=== PATIENT | male | born 1975 | race Caucasian/White ===

== ENCOUNTER 2017-10-25 09:02 | Emergency (ER) | payer BC ==
--- NOTE | 2017-10-25 09:18 | EDM.PDOC ---
ED HPI GENERAL MEDICAL PROBLEM - General Chief Complaint: Back Pain or Injury Stated Complaint: BACK PAIN Time Seen by Provider: 10/25/17 10:07 Source of Information: Reports: Patient History Limitations: Reports: No Limitations - History of Present Illness INITIAL COMMENTS - FREE TEXT/NARRATIVE: History of present illness: []Patient presents with left lower back pain after crawling in his truck and feeling a sharp sudden pain. He denies any radiating pain to his lower extremities or numbness or tingling. Patient has had a fractured back many years ago and states that this does not feel anything like that. Review of systems: As per history of present illness and below otherwise all systems reviewed and negative. Past medical history: As per history of present illness and as reviewed below otherwise noncontributory. Surgical history: As per history of present illness and as reviewed below otherwise noncontributory. Social history: No reported history of drug or alcohol abuse. Family history: As per history of present illness and as reviewed below otherwise noncontributory. Physical exam: General: Well developed, well nourished in NAD HEENT: Atraumatic, normocephalic, pupils reactive, negative for conjunctival pallor or scleral icterus, mucous membranes moist, throat clear, neck supple, nontender, trachea midline. Lungs: Clear to auscultation, breath sounds equal bilaterally, chest nontender. Heart: S1S2, regular, negative for clicks, rubs, or JVD. Abdomen: Soft, nondistended, nontender. Negative for masses or hepatosplenomegaly. Negative for costovertebral tenderness. Pelvis: Stable nontender. Genitourinary: Deferred. Rectal: Deferred. Extremities: Atraumatic, negative for cords or calf pain. Neurovascular unremarkable. Neuro: Awake, alert, oriented. Cranial nerves II through XII unremarkable. Cerebellum unremarkable. Motor and sensory unremarkable throughout. Exam nonfocal. Diagnostics: [] Therapeutics: []Flexeril and Toradol given in the ED Impression: []Lumbar strain Plan: []Flexeril and tramadol for pain follow-up PMD requests physical therapy. Definitive disposition and diagnosis as appropriate pending reevaluation and review of above. Lower Back Pain Score (Numeric/FACES): 10 - Related Data Allergies Allergy/AdvReac Type Severity Reaction Status Date / Time No Known Allergies Allergy Verified 06/23/16 10:12 Home Meds: Home Meds Cyclobenzaprine [Flexeril] 10 mg PO BID PRN #16 tablet 10/25/17 [Rx] traMADol [Ultram] 50 mg PO Q8H PRN #16 tablet 10/25/17 [Rx] Past Medical History - Past Health History Medical/Surgical History: Denies Medical/Surgical History HEENT History: Reports: Other (See Below) Other HEENT History: Wears eyeglasses. Cardiovascular History: Reports: None Respiratory History: Reports: None Gastrointestinal History: Reports: None Genitourinary History: Reports: Other (See Below) Other Genitourinary History: kidney stones Musculoskeletal History: Reports: None Neurological History: Reports: None Psychiatric History: Reports: None Endocrine/Metabolic History: Reports: None Hematologic History: Reports: None Immunologic History: Reports: None Oncologic (Cancer) History: Reports: None Dermatologic History: Reports: None - Infectious Disease History Infectious Disease History: Reports: Chicken Pox - Past Surgical History Head Surgeries/Procedures: Reports: None HEENT Surgical History: Reports: None Cardiovascular Surgical History: Reports: None Respiratory Surgical History: Reports: None GI Surgical History: Reports: None Male Surgical History: Reports: None Endocrine Surgical History: Reports: None Neurological Surgical History: Reports: None Musculoskeletal Surgical History: Reports: None Oncologic Surgical History: Reports: None Social & Family History - Family History Family Medical History: Noncontributory HEENT: Reports: None Cardiac: Reports: Hypertension Respiratory: Reports: None GI: Reports: None : Reports: None OBGYN: Reports: None Musculoskeletal: Reports: None Endocrine/Metabolic: Reports: Diabetes, type II Hematologic: Reports: None Immunologic: Reports: None Dermatologic: Reports: None Oncologic: Reports: Other (See Below) Other Oncologic Family History: Myeloma - Tobacco Use Smoking Status *Q: Current Every Day Smoker Years of Tobacco use: 20 Packs/Tins Daily: 0.5 Used Tobacco, but Quit: No Second Hand Smoke Exposure: Yes - Recreational Drug Use Recreational Drug Use: No ED ROS GENERAL - Review of Systems Review Of Systems: See Below (See history of present illness) ED EXAM, GENERAL - Physical Exam Exam: See Below (See history of present illness) Course - Vital Signs Last Recorded V/S: Last Vital Signs Temp 96.0 F 10/25/17 09:11 Pulse 84 10/25/17 09:11 Resp 22 H 10/25/17 09:11 BP 132/99 H 10/25/17 09:11 Pulse Ox 97 10/25/17 09:11 - Orders/Labs/Meds Meds: Medications Discontinued Medications Generic Name Dose Route Start Last Admin Trade Name Freq PRN Reason Stop Dose Admin Cyclobenzaprine HCl 10 mg 10/25/17 09:39 10/25/17 09:46 Flexeril PO 10/25/17 09:40 10 mg ONETIME ONE Administration Ketorolac Tromethamine 60 mg 10/25/17 09:39 10/25/17 09:45 Toradol IM 10/25/17 09:40 60 mg ONETIME ONE Administration Departure - Departure Time of Disposition: 10:02 Disposition: Home, Self-Care 01 Condition: Good Clinical Impression: Lumbar paraspinal muscle spasm - Discharge Information Prescriptions: Cyclobenzaprine [Flexeril] 10 mg PO BID PRN #16 tablet PRN Reason: Spasms traMADol [Ultram] 50 mg PO Q8H PRN #16 tablet PRN Reason: Pain Referrals: PCP,None [Primary Care Provider] - Forms: ED Department Discharge Additional Instructions: The following information is given to patients seen in the emergency department who are being discharged to home. This information is to outline your options for follow-up care. We provide all patients seen in our emergency department with a follow-up referral. The need for follow-up, as well as the timing and circumstances, are variable depending upon the specifics of your emergency department visit. If you don't have a primary care physician on staff, we will provide you with a referral. We always advise you to contact your personal physician following an emergency department visit to inform them of the circumstance of the visit and for follow-up with them and/or the need for any referrals to a consulting specialist. The emergency department will also refer you to a specialist when appropriate. This referral assures that you have the opportunity for follow-up care with a specialist. All of these measure are taken in an effort to provide you with optimal care, which includes your follow-up. Under all circumstances we always encourage you to contact your private physician who remains a resource for coordinating your care. When calling for follow-up care, please make the office aware that this follow-up is from your recent emergency room visit. If for any reason you are refused follow-up, please contact the [facility] Emergency Department at and asked to speak to the emergency department charge nurse. Flexeril and tramadol as directed follow-up with primary care request physical therapy return if symptoms worsen or change. [facility] [place] [id number] .
[2017-10-25] MEDS ORDERED: Ketorolac 60 MG/2 ML SDV IM ONE (09:39)
[2017-10-25] MEDS ORDERED: Cyclobenzaprine 10 MG Tab PO ONE (09:39)
[2017-10-25 10:28] VITALS: BP 127/96
== END 2017-10-25 10:14 | disposition home or self-care (01) ==
LOC: MW.ED 09:02
DX: S39.012A Strain of muscle, fascia and tendon of lower back, initial encounter (principal); F17.210 Nicotine dependence, cigarettes, uncomplicated; X58.XXXA Exposure to other specified factors, initial encounter
CPT/HCPCS: 96372; 99283; A9270; J1885

== ENCOUNTER 2021-11-30 12:29 | Emergency (ER) | payer BC ==
[2021-11-30] MEDS ORDERED: Diphtheria,Pertussis(Acell),Tetanus Vaccine 0.5 ML Syringe IM ONE (13:14)
[2021-11-30 13:16] VITALS: BP 122/88; PULSE 75
[2021-11-30] MEDS ORDERED: Bacitracin Oint 1 GM U/D Packet TOP ONE (14:46)
[2021-11-30] MEDS ORDERED: Bacitracin Oint 1 GM U/D Packet ONE (14:48)
== END 2021-11-30 16:02 | disposition home or self-care (01) ==
LOC: MW.ED 12:29
DX: S01.21XA Laceration without foreign body of nose, initial encounter (principal); Z23 Encounter for immunization; W18.09XA Striking against other object with subsequent fall, initial encounter
CPT/HCPCS: 12014; 70450; 70450-26; 70486; 70486-26; 72125; 72125-26; 90471; 90715; 99283-25

== ENCOUNTER 2024-04-07 01:03 | Emergency (ER) | payer BC ==
[2024-04-07 01:31] LABS: BASOPHILS ABSOLUTE AUTO 0.09 K/uL (0.00-0.20); BASOPHILS PERCENT AUTO 0.9 % (0.0-1.0); EOSINOPHILS ABSOLUTE AUTO 0.27 K/uL (0.00-0.45); EOSINOPHILS PERCENT AUTO 2.7 % (0.0-6.0); HEMATOCRIT 43.8 % (42.0-52.0); HEMOGLOBIN 14.9 g/dL (14.0-18.0); IMMATURE GRAN ABSOLUTE AUTO 0.04 K/uL (0.00-0.05); IMMATURE GRAN PERCENT AUTO 0.4 % (0.0-0.4); LYMPHOCYTES ABSOLUTE AUTO 2.52 K/uL (1.00-4.80); LYMPHOCYTES PERCENT AUTO 25.6 % (24.0-44.0); MEAN CORPUSCULAR HEMOGLOBIN 29.4 pg (28.0-32.0); MEAN CORPUSCULAR VOLUME 86.4 fL (83.0-99.0); MEAN PLATELET VOLUME 9.2 fL (9.4-12.4); MONOCYTES ABSOLUTE AUTO 0.78 K/uL (0.00-0.80); MONOCYTES PERCENT AUTO 7.9 % (0.0-8.0); NEUTROPHILS ABSOLUTE AUTO 6.15 K/uL (1.80-7.70); NEUTROPHILS PERCENT AUTO 62.5 % (41.0-71.0); PLATELET COUNT,PLT 292 K/uL (150-400); RED BLOOD CELL COUNT 5.07 M/uL (4.52-5.90); WHITE BLOOD CELL COUNT,WBC 9.85 K/uL (3.9-11.3)
[2024-04-07] MEDS: Sodium Chloride 0.9% 1,000 ML IV STA (01:34)
[2024-04-07] MEDS: Ondansetron 4 MG/2 ML SDV IVPUSH ONE (01:38)
[2024-04-07] MEDS: Morphine 4 MG/ML Syringe IVPUSH ONE (01:38)
[2024-04-07] MEDS: Ketorolac 30 MG/ML SDV IVPUSH ONE (01:39)
[2024-04-07] MEDS: Sodium Chloride 0.9% 10 ML Syringe FLUSH PRN (01:40)
[2024-04-07] MEDS: Sodium Chloride 0.9% 2.5 ML Syringe FLUSH PRN (01:40)
[2024-04-07 01:41] LABS: BILIRUBIN,URINE NEGATIVE (NEGATIVE); COLOR,URINE YELLOW; GLUCOSE,URINE NEGATIVE (NEGATIVE); KETONES,URINE NEGATIVE (NEGATIVE); LEUKOCYTE ESTERASE,URINE NEGATIVE (NEGATIVE); NITRITE,URINE NEGATIVE (NEGATIVE); OCCULT BLOOD,URINE SMALL (NEGATIVE); PROTEIN,URINE NEGATIVE (NEGATIVE); UROBILINOGEN,URINE 0.2 EU/dL (<2.0)
[2024-04-07 01:50] LABS: APPEARANCE,URINE HAZY
[2024-04-07 01:51] LABS: BACTERIA,URINE 1+ (NEGATIVE); EPITHELIAL CELLS,URINE RARE (NONE-FEW); RBC,URINE 0-5 (0-2/HPF); WBC,URINE 0-1 (0-5/HPF)
[2024-04-07 01:53] LABS: A/G RATIO 0.9 (0.9-1.6); ALBUMIN 3.5 g/dL (3.4-5.0); BILIRUBIN TOTAL 0.3 mg/dL (0.2-1.0); CALCIUM 8.4 mg/dL (8.5-10.1); CARBON DIOXIDE,CO2 23.2 mmol/L (21.0-32.0); CREATININE 1.1 mg/dL (0.8-1.3); EST CRCL DRUG DOSING (CG) 83.88 mL/min; PROTEIN TOTAL,TP 7.4 g/dL (6.4-8.2)
[2024-04-07 01:54] VITALS: PULSE 60
[2024-04-07] MEDS: Iopamidol 755 MG/ML 500 ML Multipack Bottle IVPUSH STA (01:54)
[2024-04-07] MEDS: cefTRIAXone 2 GM in Sodium Chloride 0.9% 50 ML IV ONE (02:35)
[2024-04-07] MEDS: Tamsulosin 0.4 MG Cap.ER PO ONE (02:35)
[2024-04-07 03:12] VITALS: BP 126/80
== END 2024-04-07 03:15 | disposition home or self-care (01) ==
LOC: MW.ED 01:03
DX: N13.2 Hydronephrosis with renal and ureteral calculous obstruction (principal); Z79.899 Other long term (current) drug therapy; Z87.891 Personal history of nicotine dependence; Z75.8 Other problems related to medical facilities and other health care
CPT/HCPCS: 36415; 74177; 80053; 81001; 85025; 96361; 96365; 96375; 99284; A9270; J0696; J1885; J2270; J2405; J3490; J7030; Q9967

== ENCOUNTER 2024-04-08 17:33 | Emergency (ER) | payer BC ==
[2024-04-08] MEDS: Sodium Chloride 0.9% 1,000 ML IV ONE (18:12)
[2024-04-08] MEDS: Ondansetron 4 MG/2 ML SDV IVPUSH ONE (18:12)
[2024-04-08] MEDS: Sodium Chloride 0.9% 10 ML Syringe FLUSH PRN (18:12)
[2024-04-08] MEDS: Morphine 2 MG/ML SYRINGE IVPUSH ONE (18:12)
[2024-04-08] MEDS: Sodium Chloride 0.9% 2.5 ML Syringe FLUSH PRN (18:12)
[2024-04-08 18:15] LABS: BASOPHILS ABSOLUTE AUTO 0.03 K/uL (0.00-0.20); BASOPHILS PERCENT AUTO 0.2 % (0.0-1.0); HEMOGLOBIN 15.1 g/dL (14.0-18.0); IMMATURE GRAN ABSOLUTE AUTO 0.06 K/uL (0.00-0.05); IMMATURE GRAN PERCENT AUTO 0.4 % (0.0-0.4); LYMPHOCYTES ABSOLUTE AUTO 0.98 K/uL (1.00-4.80); LYMPHOCYTES PERCENT AUTO 6.2 % (24.0-44.0); MEAN CORPUSCULAR HEMOGLOBIN 29.6 pg (28.0-32.0); MEAN CORPUSCULAR HGB CONC 34.3 g/dL (32.0-36.0); MEAN CORPUSCULAR VOLUME 86.3 fL (83.0-99.0); MONOCYTES ABSOLUTE AUTO 1.33 K/uL (0.00-0.80); MONOCYTES PERCENT AUTO 8.5 % (0.0-8.0); NEUTROPHILS ABSOLUTE AUTO 13.29 K/uL (1.80-7.70); NEUTROPHILS PERCENT AUTO 84.7 % (41.0-71.0); PLATELET COUNT,PLT 289 K/uL (150-400); WHITE BLOOD CELL COUNT,WBC 15.69 K/uL (3.9-11.3)
[2024-04-08 18:21] LABS: APPEARANCE,URINE SLT CLOUDY; BILIRUBIN,URINE NEGATIVE (NEGATIVE); COLOR,URINE YELLOW; GLUCOSE,URINE NEGATIVE (NEGATIVE); KETONES,URINE 15 mg/dL (NEGATIVE); LEUKOCYTE ESTERASE,URINE NEGATIVE (NEGATIVE); NITRITE,URINE NEGATIVE (NEGATIVE); OCCULT BLOOD,URINE LARGE (NEGATIVE); PH,URINE 6.5 (5.0-8.0); PROTEIN,URINE TRACE mg/dL (NEGATIVE)
[2024-04-08 18:28] LABS: A/G RATIO 0.9 (0.9-1.6); ALBUMIN 3.5 g/dL (3.4-5.0); BILIRUBIN TOTAL 0.8 mg/dL (0.2-1.0); CALCIUM 8.4 mg/dL (8.5-10.1); CARBON DIOXIDE,CO2 22.7 mmol/L (21.0-32.0); CREATININE 1.2 mg/dL (0.8-1.3); EST CRCL DRUG DOSING (CG) 76.89 mL/min; POTASSIUM,K 3.7 mmol/L (3.5-5.1); PROTEIN TOTAL,TP 7.6 g/dL (6.4-8.2)
[2024-04-08 18:34] LABS: BACTERIA,URINE FEW (NEGATIVE); EPITHELIAL CELLS,URINE FEW (NONE-FEW); MUCUS,URINE MODERATE (NONE-MOD); RBC,URINE 50-75 (0-2/HPF); WBC,URINE 0-1 (0-5/HPF)
[2024-04-08] MEDS: Cefepime 2 GM in Sodium Chloride 0.9% 50 ML IV ONE (18:51)
[2024-04-08] MEDS: Ketorolac 30 MG/ML SDV IVPUSH ONE (19:25)
[2024-04-08 19:30] LABS: LACTIC ACID 1.3 mmol/L (0.4-2.0)
[2024-04-08 21:28] VITALS: BP 99/73; PULSE 78
== END 2024-04-08 21:28 | disposition home or self-care (01) ==
LOC: MW.ED 17:33
DX: N13.2 Hydronephrosis with renal and ureteral calculous obstruction (principal); R11.2 Nausea with vomiting, unspecified
CPT/HCPCS: 36415; 74177; 80053; 81001; 83605; 83690; 85025; 87040; 96361; 96365; 96375; 99284; J0692; J1885; J2270; J2405; J3490; J7030

== ENCOUNTER 2024-06-20 06:05 | Emergency (ER) | payer BC ==
[2024-06-20] MEDS: Meclizine 25 MG Tab PO ONE (06:24)
[2024-06-20 06:25] LABS: BASOPHILS ABSOLUTE AUTO 0.06 K/uL (0.00-0.20); BASOPHILS PERCENT AUTO 0.9 % (0.0-1.0); EOSINOPHILS ABSOLUTE AUTO 0.31 K/uL (0.00-0.45); EOSINOPHILS PERCENT AUTO 4.6 % (0.0-6.0); HEMATOCRIT 45.2 % (42.0-52.0); HEMOGLOBIN 15.2 g/dL (14.0-18.0); IMMATURE GRAN ABSOLUTE AUTO 0.02 K/uL (0.00-0.05); IMMATURE GRAN PERCENT AUTO 0.3 % (0.0-0.4); LYMPHOCYTES ABSOLUTE AUTO 1.75 K/uL (1.00-4.80); LYMPHOCYTES PERCENT AUTO 26.1 % (24.0-44.0); MEAN CORPUSCULAR HEMOGLOBIN 29.5 pg (28.0-32.0); MEAN CORPUSCULAR HGB CONC 33.6 g/dL (32.0-36.0); MEAN CORPUSCULAR VOLUME 87.8 fL (83.0-99.0); MEAN PLATELET VOLUME 8.9 fL (9.4-12.4); NEUTROPHILS ABSOLUTE AUTO 3.96 K/uL (1.80-7.70); NEUTROPHILS PERCENT AUTO 59.1 % (41.0-71.0); PLATELET COUNT,PLT 284 K/uL (150-400); RED BLOOD CELL COUNT 5.15 M/uL (4.52-5.90)
[2024-06-20] MEDS: Sodium Chloride 0.9% 10 ML Syringe FLUSH PRN (06:25)
[2024-06-20] MEDS: Sodium Chloride 0.9% 1,000 ML IV ONE (06:46)
[2024-06-20] MEDS: Dexamethasone 4 MG/ML SDV IVPUSH ONE (06:46)
[2024-06-20 06:54] LABS: A/G RATIO 0.8 (0.9-1.6); ALANINE AMINOTRANSFERASE,ALT 23 IU/L (14-63); ALBUMIN 3.4 g/dL (3.4-5.0); ALKALINE PHOSPHATASE 62 U/L (46-116); ASPARTATE AMNIOTRANSFERASE,AST 31 IU/L (15-37); BILIRUBIN TOTAL 0.6 mg/dL (0.2-1.0); BLOOD UREA NITROGEN,BUN 16 mg/dL (7.0-18.0); CALCIUM 8.5 mg/dL (8.5-10.1); CARBON DIOXIDE,CO2 26.5 mmol/L (21.0-32.0); CHLORIDE,CL 104 mmol/L (98-107); CREATININE 0.8 mg/dL (0.8-1.3); EST CRCL DRUG DOSING (CG) 108.06 mL/min; ESTIMATED GFR 108 mL/min (>60); GLUCOSE RANDOM 113 mg/dL (74-106); LIPASE 25 U/L (16-77); MAGNESIUM 2.1 mg/dL (1.8-2.4); POTASSIUM,K 5.1 mmol/L (3.5-5.1); PRO B-TYPE NATRIUR PEPT,BNPPRO 160 pg/mL (0-125); PROTEIN TOTAL,TP 7.5 g/dL (6.4-8.2); SODIUM,NA 139 mmol/L (136-148)
[2024-06-20 07:08] LABS: CORONAVIRUS COVID-19 NAA NEGATIVE (NEGATIVE); INFLUENZA A NAA NEGATIVE (NEGATIVE); INFLUENZA B NAA NEGATIVE (NEGATIVE); RESPIRATORY SYNCYTIAL VIR NAA NEGATIVE (NEGATIVE)
[2024-06-20 07:44] VITALS: BP 116/79; PULSE 64
== END 2024-06-20 07:44 | disposition home or self-care (01) ==
LOC: MW.ED 06:05
DX: R42 Dizziness and giddiness (principal); R07.9 Chest pain, unspecified; R06.02 Shortness of breath; R00.1 Bradycardia, unspecified; K21.9 Gastro-esophageal reflux disease without esophagitis
CPT/HCPCS: 0241U; 36415; 70450; 71045; 80053; 83690; 83735; 83880; 84484; 85025; 93005; 96361; 96374; 99285; A9270; J1100; J3490; J7030; 93010

== ENCOUNTER 2025-04-17 16:12 | Emergency (ER) | payer BC ==
[2025-04-17] MEDS: Bacitracin Oint 1 GM U/D Packet TOP ONE (17:31)
[2025-04-17 17:36] VITALS: BP 144/85; PULSE 81
== END 2025-04-17 17:52 | disposition home or self-care (01) ==
LOC: MW.ED 16:12
DX: S61.011A Laceration without foreign body of right thumb without damage to nail, initial encounter (principal); Z75.3 Unavailability and inaccessibility of health-care facilities; W22.8XXA Striking against or struck by other objects, initial encounter; Y93.89 Activity, other specified
CPT/HCPCS: 12001; 99282; J2003; 99283